=== PATIENT | female | born 1980 | race Caucasian/White ===

== ENCOUNTER 2016-08-28 18:42 | Emergency (ER) | payer OTHER ==
--- NOTE | 2016-08-28 19:31 | ER Document Report ---
ED Medical Screen (RME) - General Chief Complaint: Vaginal Bleeding Stated Complaint: VAGINAL BLEEDING Time Seen by Provider: 08/28/16 19:10 Notes: Patient is a 36-year-old female, 9 weeks by LMP, presents with a few hours of vaginal spotting after urinating. Blood type is AB+. She denies abdominal pain, dysuria, hematuria, nausea, vomiting or headache. PE: No acute distress. Non-tender abdomen. I have greeted and performed a rapid initial assessment of this patient. A comprehensive ED assessment and evaluation of the patient, analysis of test results and completion of the medical decision making process will be conducted by additional ED providers. TRAVEL OUTSIDE OF THE [place] IN LAST 30 DAYS: No - Related Data Allergies/Adverse Reactions: amoxicillin Allergy (Verified 08/28/16 18:45) Penicillins Allergy (Verified 08/28/16 18:45) prednisone Allergy (Verified 08/28/16 18:45) Sulfa (Sulfonamide Antibiotics) Allergy (Verified 08/28/16 18:45) Past Medical History - General Last Menstrual Period: 06/24/2016 Renal/ Medical History: Denies: Hx Peritoneal Dialysis Past Surgical History: Reports: Hx Section - x2 Physical Exam - Vital signs Vitals: Temp Pulse Resp BP Pulse Ox 98.5 F 80 16 122/67 100 08/28/16 18:45 08/28/16 18:45 08/28/16 18:45 08/28/16 18:45 08/28/16 18:45 Course - Vital Signs Vital signs: Temp Pulse Resp BP Pulse Ox 98.5 F 80 16 122/67 100 08/28/16 18:45 08/28/16 18:45 08/28/16 18:45 08/28/16 18:45 08/28/16 18:45
[2016-08-28 20:50] LABS: APPEARANCE,URINE SLIGHTLY-CLOUDY; BILIRUBIN,URINE NEGATIVE (NEGATIVE); CALCIUM OXALATE CRYSTALS,URINE FEW /HPF; GLUCOSE, URINE NEGATIVE (NEGATIVE); KETONES,URINE NEGATIVE (NEGATIVE); LEUKOCYTE ESTERASE,URINE NEGATIVE (NEGATIVE); NITRITE,URINE NEGATIVE (NEGATIVE); PROTEIN,URINE NEGATIVE (NEGATIVE); URINE SPECIFIC GRAVITY 1.024; UROBILINOGEN,URINE NEGATIVE mg/dL (<2.0)
--- NOTE | 2016-08-28 21:41 | RADIOLOGY REPORT (SQ) ---
EXAM DESCRIPTION: U/S OB TRANSVAGINAL W/O DOP COMPLETED DATE/TIME: 08/28/2016 9:20 pm REASON FOR STUDY: 9 weeks, vaginal spotting COMPARISON: None. TECHNIQUE: Transvaginal static and realtime grayscale images acquired of the pelvis. Additional misha cted spectral and color Doppler images recorded. All images stored on PACs. bHCG: Not available. LMP 06/24/2016. LIMITATIONS: None. FINDINGS: FETUS: Intrauterine pole noted measuring approximately 0.7 cm. No cardiac motion o r heart tones identified on this study. Question possible demise. The yolk sac adjacent to the pole appears to be enlarged. EGA: 6 weeks 4 days HAYLEE: 04/19/2017 FHR: None detected SUBCHORIONIC BLEED: Yes SIZE OF BLEED: 0.8 x 0.3 x 0.5 cm UTERUS: No masses. No anomalies. CERVICAL LENGTH: 2.4 cm Closed. RIGHT ADNEXA: Normal ovary with normal vascular flow. Cyst measuring 2.1 x 2.3 x 2.7 cm No adnexal free fluid. No adnexal masses. LEFT ADNEXA: Normal ovary with normal vascular flow. No adnexal free fluid. No adnexal masses. FREE FLUID: Fluid noted in the pouch of Maikel. OTHER: No other significant finding. IMPRESSION: pole noted without cardiac activity or heart tones detected. Dates based on crown-rump length there discordant with the patient's LMP. Yolk sac is noted to be enlarged. This concerning for possible demise. Continued follow-up is recommended. EGA 6 weeks 4 days based on crown-rump length. Subchorionic hematoma noted measuring 0.8 x 0.3 x 0.6 cm. Trimester of : First - 0 to 13 weeks. TECHNICAL DOCUMENTATION: JOB ID: [id number]- All Rights Reserved
--- NOTE | 2016-08-28 22:38 | ER Document Report ---
ED General - General Chief Complaint: Vaginal Bleeding Stated Complaint: VAGINAL BLEEDING Time Seen by Provider: 08/28/16 19:10 Notes: Patient is a 36-year-old female at 9 weeks by last menstrual period who presents with vaginal spotting. Patient has not yet had a confirmed ultrasound intrauterine prior to [facility]. No prior history of miscarriages or ectopic pregnancies. States that she has had less than 1 pad of bleeding since onset and is not actively bleeding at this time. She denies any pain. Nothing improves or worsens her symptoms. She has not seen her BINGO ATTENDANT regarding today' s concerns. TRAVEL OUTSIDE OF THE [place] IN LAST 30 DAYS: No - Related Data Allergies/Adverse Reactions: amoxicillin Allergy (Verified 08/28/16 18:45) Penicillins Allergy (Verified 08/28/16 18:45) prednisone Allergy (Verified 08/28/16 18:45) Sulfa (Sulfonamide Antibiotics) Allergy (Verified 08/28/16 18:45) Past Medical History - General Information source: Patient Last Menstrual Period: 06/24/2016 - Social History Smoking Status: Never Smoker Frequency of alcohol use: None Drug Abuse: None Lives with: Spouse/Significant other Family History: Reviewed & Not Pertinent Patient has suicidal ideation: No Patient has homicidal ideation: No Renal/ Medical History: Denies: Hx Peritoneal Dialysis Past Surgical History: Reports: Hx Section - x2 Review of Systems - Review of Systems Notes: Constitutional: Negative for fever. HENT: Negative for sore throat. Eyes: Negative for visual changes. Cardiovascular: Negative for chest pain. Respiratory: Negative for shortness of breath. Gastrointestinal: Negative for abdominal pain, vomiting or diarrhea. Genitourinary: Negative for dysuria. Positive for vaginal bleeding. Musculoskeletal: Negative for back pain. Skin: Negative for rash. Neurological: Negative for headaches, weakness or numbness. 10 point ROS negative except as marked above and in HPI. Physical Exam - Vital signs Vitals: Temp Pulse Resp BP Pulse Ox 98.5 F 80 16 122/67 100 08/28/16 18:45 08/28/16 18:45 08/28/16 18:45 08/28/16 18:45 08/28/16 18:45 Interpretation: Normal Notes: PHYSICAL EXAMINATION: GENERAL: Well-appearing, well-nourished and in no acute distress. HEAD: Atraumatic, normocephalic. EYES: Pupils equal round and reactive to light, extraocular movements intact, sclera anicteric, conjunctiva are normal. ENT: nares patent, oropharynx clear without exudates. Moist mucous membranes. NECK: Normal range of motion, supple without lymphadenopathy LUNGS: Breath sounds clear to auscultation bilaterally and equal. No wheezes rales or rhonchi. HEART: Regular rate and rhythm without murmurs ABDOMEN: Soft, nontender, normoactive bowel sounds. No guarding, no rebound. No masses appreciated. EXTREMITIES: Normal range of motion, no pitting or edema. No cyanosis. NEUROLOGICAL: No focal neurological deficits. Moves all extremities spontaneously and on command. PSYCH: Normal mood, normal affect. SKIN: Warm, Dry, normal turgor, no rashes or lesions noted. Course - Re-evaluation Re-evalutation: 08/28/16 22:36 Patient presents with a mild amount of vaginal bleeding in the setting of an early first trimester . Transvaginal ultrasound shows an intrauterine , likely will proceed to a miscarriage. No active bleeding at time of presentation. She is Rh positive. Patient's abdominal exam is otherwise benign without any focal tenderness. I do not suspect an acute appendicitis, pyelonephritis, cystitis, or bowel obstruction. I have instructed the patient to follow-up with her BINGO ATTENDANT in the next 24-48 hours. At this time will discharge with return precautions and follow-up recommendations. Verbal discharge instructions given a the bedside and opportunity for questions given. Medication warnings reviewed. Patient is in agreement with this plan and has verbalized understanding of return precautions and the need for follow-up in the next 24-72 hours. - Vital Signs Vital signs: Temp Pulse Resp BP Pulse Ox 98.5 F 70 16 115/72 98 08/28/16 23:21 08/28/16 23:21 08/28/16 23:21 08/28/16 23:21 08/28/16 23:21 - Laboratory Laboratory results interpreted by me: 08/28/16 20:30 Urine Ascorbic Acid 40 H - Diagnostic Test Radiology reviewed: Reports reviewed Discharge - Discharge Clinical Impression: First trimester bleeding Condition: Good Disposition: HOME, SELF-CARE Additional Instructions: As we have discussed today your ultrasound is abnormal you will require follow- up with your BINGO ATTENDANT for further ultrasounds to confirm if this is an abnormal . please return if you develop severe abdominal pain, bleeding that goes through more than 2 pads for more than 2 hours, pass out, or have any other symptoms that are concerning to you. Please follow-up closely with your OBGYN regarding todays visit.
[2016-08-28 23:39] VITALS: BP 115/72
== END 2016-08-28 23:21 | disposition home or self-care (01) ==
LOC: ER 18:42
DX: N93.8 Other specified abnormal uterine and vaginal bleeding (principal); O26.851 Spotting complicating pregnancy, first trimester; Z3A.09 9 weeks gestation of pregnancy; Z88.0 Allergy status to penicillin; Z88.2 Allergy status to sulfonamides
CPT/HCPCS: 76817; 81001; 99284